=== PATIENT | male | born 1985 | race Caucasian/White ===

== ENCOUNTER 2016-11-10 01:20 | Emergency (ER) | payer OTHER ==
[~2016-11-10] VITALS: Ht 198.1 cm; Wt 136.4 kg
[2016-11-10] MEDS ORDERED: IBUPROFEN 800 MG TABLET PO ONE (03:30)
[2016-11-10] MEDS ORDERED: ACETAMINOPHEN/CODEINE 300-30 MG TABLET PO ONE (03:30)
[2016-11-10] MEDS ORDERED: AMOX TR/POT CLAV 875 MG/125 MG TABLET PO ONE (03:30)
[2016-11-10 04:39] VITALS: BP 136/78
== END 2016-11-10 04:41 | disposition home or self-care (01) ==
LOC: EMS 01:22
DX: H66.92 Otitis media, unspecified, left ear (principal)
CPT/HCPCS: 99284

== ENCOUNTER 2017-01-21 12:45 | Emergency (ER) | payer OTHER ==
[~2017-01-21] VITALS: Ht 198.1 cm; Wt 131.8 kg
[2017-01-21] MEDS: IBUPROFEN 800 MG TABLET PO ONE (14:42)
[2017-01-21 15:51] VITALS: BP 142/83
== END 2017-01-21 15:53 | disposition home or self-care (01) ==
LOC: EMS 12:47
DX: S20.212A Contusion of left front wall of thorax, initial encounter (principal); W50.0XXA Accidental hit or strike by another person, initial encounter; Y93.89 Activity, other specified; Y92.9 Unspecified place or not applicable; Y99.9 Unspecified external cause status
CPT/HCPCS: 71101; 99284